=== PATIENT | male | born 2000 | race Caucasian/White ===

== ENCOUNTER → 2019-02-02 | Outpatient (CLI) | payer BC, OTHER, SELFPAY ==
[2019-02-02 12:05] LABS: BASO # 0.1 10^3/uL (0.0-0.2); BASO % 0.6 % (0.0-1.0); EOS # 0.4 10^3/uL (0.0-0.50); EOS % 5.1 % (0.0-3.0); HEMATOCRIT 52.8 % (42.0-52.0); HEMOGLOBIN 17.8 g/dl (13.5-17.5); LYMPH # 2.5 10^3/uL (1.5-6.5); LYMPH % 30.9 % (24.0-44.0); MEAN CORPUSCULAR HEMOGLOBIN 30.3 pg (27.0-33.0); MEAN CORPUSCULAR HGB CONC 33.7 g/dl (32.0-36.5); MEAN CORPUSCULAR VOLUME 89.8 fl (80.0-96.0); MONO # 0.7 10^3/uL (0.0-0.8); MONO % 8.5 % (0.0-5.0); NEUTROPHILS # 4.4 10^3/uL (1.8-7.7); NEUTROPHILS % 54.3 % (36.0-66.0); PLATELET COUNT, AUTOMATED 270 10^3/uL (150-450); RED BLOOD COUNT 5.88 10^6/uL (4.30-6.10); WHITE BLOOD COUNT 8.1 10^3/uL (4.0-10.0)
[2019-02-02 12:30] LABS: BLOOD UREA NITROGEN 18 MG/DL (7-18); CARBON DIOXIDE LEVEL 28 MEQ/L (21-32); CHLORIDE LEVEL 105 MEQ/L (98-107); CREATININE FOR GFR 1.04 MG/DL (0.70-1.30); GLUCOSE, FASTING 86 MG/DL (70-100); POTASSIUM SERUM 4.4 MEQ/L (3.5-5.1); SODIUM LEVEL 140 MEQ/L (136-145)
== END ==
LOC: M LAB 10:47
PROVIDERS: ATTEND Surgery
DX: R10.84 Generalized abdominal pain (principal); R19.7 Diarrhea, unspecified

== ENCOUNTER → 2019-03-16 | Outpatient (CLI) | payer OTHER ==
[~2019-03-16] MED LIST: GASTROGRAFIN SOLUTION 30ML (Q9963) As Ordered ONE; ISOVUE-370 76% 100ML VIAL (Q9967) As Ordered ONE
--- NOTE | 2019-03-16 18:24 | REP ---
Clinical: Abdominal pain and diarrhea with family history of inflammatory bowel disease. Technique: Axial contrast enhanced images from the lung bases to the pubic symphysis with coronal and sagittal re-formations using oral (per protocol) and 100 ml Isovue 370 intravenous contrast material. Comparison: None. Findings: Lung bases are clear. Visualized heart and pericardium normal. Liver, spleen, pancreas, gallbladder, bilateral adrenal glands and kidneys are normal. The enteric system is without obstruction or acute inflammatory process. Normal terminal ileum and appendix identified in the right lower quadrant. Pelvis demonstrates normal bladder and age appropriate prostate/seminal vesicles. No ascites. No significant adenopathy. No free air. Abdominal aorta and vasculature appear normal. Musculoskeletal structures are intact. Impression: Normal contrast enhanced CT of the abdomen and pelvis. Electronically Signed by Hayes Stock MD 03/16/2019 06:16 P
== END ==
LOC: M RAD 16:11
PROVIDERS: ATTEND Surgery
DX: R10.84 Generalized abdominal pain (principal); R19.7 Diarrhea, unspecified
CPT/HCPCS: 74177; Q9963; Q9967

== ENCOUNTER 2019-05-01 12:29 | Day surgery (SDC) | payer OTHER ==
[~2019-05-01] VITALS: Ht 182.9 cm; Wt 90.3 kg
[~2019-05-01 12:29] MED LIST changes: -GASTROGRAFIN SOLUTION 30ML (Q9963) As Ordered ONE; -ISOVUE-370 76% 100ML VIAL (Q9967) As Ordered ONE; +NS 1,000 ML IV ONE
[2019-05-01] MEDS ORDERED: PROPOFOL 200 MG/20 ML VIAL As Ordered ONE ×2 (13:27→14:44)
[2019-05-01] MEDS ORDERED: LIDOCAINE 2% INJ 100 MG/5 ML SDV (FOR ANES.) As Ordered ONE (13:27)
--- NOTE | 2019-05-01 14:15 | ROOR ---
Patient Name: Bharat Garcia Procedure Date: 05/01/2019 1:37 PM Date of : 2000 Age: 19 Room: [facility] Gender: Male Note Status: Finalized Procedure: Upper GI endoscopy Indications: Generalized abdominal pain, Diarrhea Providers: Luis RYDER MD Referring MD: Bruna LONDON NP Requesting Provider: Medicines: Monitored Anesthesia Care Complications: No immediate complications. Procedure: Pre-Anesthesia Assessment: - The heart rate, respiratory rate, oxygen saturations, blood pressure, adequacy of pulmonary ventilation, and response to care were monitored throughout the procedure. The Endoscope was introduced through the mouth, and advanced to the second part of duodenum. The upper GI endoscopy was accomplished without difficulty. The patient tolerated the procedure well. Findings: Non-severe esophagitis was found at the gastroesophageal junction. Biopsies were taken with a cold forceps for histology. The entire examined stomach was normal. The examined duodenum was normal. Biopsies for histology were taken with a cold forceps for evaluation of celiac disease. Impression: - Milde reflux esophagitis. Biopsied. - Normal stomach. - Normal examined duodenum. Biopsied. Recommendation: - Observe patient's clinical course. - Use Prilosec (omeprazole) 20 mg PO daily for 3 months. - (the script was sent to your pharmacy on file) Luis Ryder MD Luis RYDER MD 05/01/2019 2:14:52 PM Electronically signed by Luis RYDER MD Number of Addenda: 0 Note Initiated On: 05/01/2019 1:37 PM Estimated Blood Loss: Estimated blood loss: none.
--- NOTE | 2019-05-01 14:23 | ROOR ---
Patient Name: Bharat Garcia Procedure Date: 05/01/2019 1:39 PM Date of : 2000 Age: 19 Room: [facility] Gender: Male Note Status: Finalized Procedure: Colonoscopy Indications: Generalized abdominal pain, Clinically significant diarrhea of unexplained origin, Hematochezia Providers: Luis RYDER MD Referring MD: Bruna LONDON NP Requesting Provider: Medicines: Monitored Anesthesia Care Complications: No immediate complications. Procedure: Pre-Anesthesia Assessment: - The heart rate, respiratory rate, oxygen saturations, blood pressure, adequacy of pulmonary ventilation, and response to care were monitored throughout the procedure. The Colonoscope was introduced through the anus and advanced to 15 cm into the ileum. The colonoscopy was performed without difficulty. The patient tolerated the procedure well. Findings: The perianal and digital rectal examinations were normal. The colon (entire examined portion) appeared normal. Biopsies for histology were taken with a cold forceps for evaluation of microscopic colitis. The terminal ileum contained five scattered aphthae. This was biopsied with a cold forceps for histology. Internal hemorrhoids were found during retroflexion. The hemorrhoids were medium-sized. Impression: - The entire examined colon is normal. Biopsied. - A few scattered tiny aphtha/erosions in the terminal ileum. Biopsied. - Internal hemorrhoids. Recommendation: - Telephone endoscopist for pathology results in 2 weeks. - Complete the small bowel study as ordered. -Call me in 10-14 days for biopsy report. (FYI: The small shallow erosions in the terminal ileum may be "normal"/insignificant, but are also seen in mild crohns disease. -- await pathology report) Luis Ryder MD Luis RYDER MD 05/01/2019 2:22:32 PM Electronically signed by Luis RYDER MD Number of Addenda: 0 Note Initiated On: 05/01/2019 1:39 PM Estimated Blood Loss: Estimated blood loss: none.
[2019-05-01 14:59] VITALS: BP 123/75
== END 2019-05-01 15:00 | disposition home or self-care (01) ==
LOC: M OPP 12:29
PROVIDERS: ATTEND Internal Medicine Gastroenterology
DX: R10.84 Generalized abdominal pain (principal); R19.7 Diarrhea, unspecified; K92.1 Melena; K63.89 Other specified diseases of intestine; K64.8 Other hemorrhoids; K20.9 Esophagitis, unspecified; F41.9 Anxiety disorder, unspecified; Z87.820 Personal history of traumatic brain injury; R51 Headache; F12.10 Cannabis abuse, uncomplicated